=== PATIENT | female | born 1935 | race Caucasian/White ===

== ENCOUNTER 2018-09-18 12:52 | Emergency (ER) | payer MEDICARE, BC ==
[~2018-09-18] VITALS: Ht 157.5 cm; Wt 40.9 kg
[~2018-09-18 12:52] MED LIST: ATOR10TA87 PO; BIOT25008 PO; CA C1TAB69 PO; CALC-1197 PO; COU1T PO; ENOX100S3 SQ; FLUO40CA PO; FURO-150 PO; LEVO150T73 PO; METH-603 PO; MULT-1141 PO; OMEG1CAP46 PO; PANT40TA39 PO; POTA-82 PO; SUCR1TAB PO; UBID100C16 PO; VITA1CAP62 PO; VITC500T PO; oxygen
[2018-09-18 15:18] LABS: BASOPHILS % (AUTO) 0.1 % (0-1); EOSINOPHILS # (AUTO) 0.1 X10'3 (0-0.9); EOSINOPHILS % (AUTO) 1.2 % (0-6); HEMATOCRIT 38.8 % (35.0-45.0); HEMOGLOBIN 12.9 g/dl (12.0-16.0); LYMPHOCYTES # (AUTO) 1.2 X10'3 (1.1-4.8); LYMPHOCYTES % (AUTO) 11.4 % (21-51); MEAN CORPUSCULAR HEMOGLOBIN 32.1 PG (27.0-31.0); MEAN CORPUSCULAR HGB CONC 33.2 % (33.0-36.5); MEAN CORPUSCULAR VOLUME 96.5 FL (78-98); MEAN PLATELET VOLUME 6.5 FL (7.4-10.4); MONOCYTES # (AUTO) 0.4 X10'3 (0-0.9); MONOCYTES % (AUTO) 4.2 % (2-12); NEUTROPHILS # (AUTO) 8.6 X10'3 (1.8-7.7); NEUTROPHILS % (AUTO) 83.1 % (42-75); PLATELET COUNT 338 X10'3 (140-440); RED BLOOD COUNT 4.02 X10'6 (4.20-5.60); WHITE BLOOD COUNT 10.4 X10'3 (4.5-11.0)
[2018-09-18 15:35] LABS: ALANINE AMINOTRANSFERASE 24 U/L (12-78); ALBUMIN 3.7 G/DL (3.4-5.0); ALKALINE PHOSPHATASE 116 IU/L (46-116); ANION GAP 11 (8-16); ASPARTATE AMINO TRANSFERASE 20 U/L (10-37); BILIRUBIN,TOTAL 0.7 MG/DL (0.1-1.0); BLOOD UREA NITROGEN 18 MG/DL (7-18); BUN/CREATININE RATIO 15.7 (6.6-38.0); CALCIUM 8.8 MG/DL (8.5-10.1); CHLORIDE 100 MMOL/L (99-107); CREATININE 1.15 MG/DL (0.40-0.90); GLUCOSE 118 MG/DL (70-104); INR 2.2 INR; PARTIAL THROMBOPLASTIN TIME 41 SECONDS (22-32); PROTHROMBIN TIME 21.4 SECONDS (9.0-12.0); SODIUM 139 MMOL/L (135-145); TOTAL CARBON DIOXIDE 28.2 MMOL/L (24-32); TOTAL PROTEIN 7.5 G/DL (6.4-8.2); eGFR 45 ML/MIN
[2018-09-18 15:40] LABS: POTASSIUM 2.9 MMOL/L (3.5-5.1)
[2018-09-18] MEDS ORDERED: potassium Cl 20 mEq SR tablet PO ONE (16:05)
[2018-09-18] MEDS: potassium 10mEq/100ml NS w/LIDOcaine (10mg/bag) IV SCH ×2 (16:31→17:05)
[2018-09-18 16:38] LABS: CLARITY,URINE CLEAR (Clear); COLOR,URINE YELLOW (Yellow); GLUCOSE, URINE NEGATIVE (Neg); KETONES,URINE NEGATIVE (Neg); LEUKOCYTE ESTERASE ,URINE NEGATIVE (Neg); NITRITES, URINE NEGATIVE (Neg); OCCULT BLOOD,URINE NEGATIVE (Neg); PROTEIN,URINE TRACE mg/dl (Neg); UROBILINOGEN,URINE 0.2 E.U/dL (0.2-1.0)
[2018-09-18 16:40] LABS: UA COLLECTION TYPE STRAIGHT CATH
[2018-09-18] MEDS ORDERED: acetaminophen 325mg tablet PO ONE (16:40)
[2018-09-18 16:57] LABS: HYALINE CASTS 0-3 /LPF (NEGATIVE); MUCUS STRANDS FEW /LPF (Neg); SQUAMOUS EPITHELIAL CELL,UR NONE SEEN /LPF (FEW)
[2018-09-18 16:59] LABS: BACTERIA,URINE FEW /HPF (Neg); RBC,URINE 0-2 /HPF (0-2); WBC,URINE 0-4 /HPF (0-4)
[2018-09-18 19:57] VITALS: BP 134/89
[2018-09-21] MEDS ORDERED: CEPH-572 PO (16:38)
[2018-09-23] MEDS ORDERED: LISI10TA4 PO (10:52)
[2018-09-23] MEDS ORDERED: CEFD300C3 PO (10:57)
== END 2018-09-18 19:57 | disposition home or self-care (01) ==
LOC: ER 12:53
DX: S00.83XA Contusion of other part of head, initial encounter (principal); R10.9 Unspecified abdominal pain; I25.10 Atherosclerotic heart disease of native coronary artery without angina pectoris; I50.9 Heart failure, unspecified; I25.2 Old myocardial infarction; K21.9 Gastro-esophageal reflux disease without esophagitis; Z90.710 Acquired absence of both cervix and uterus; Z79.01 Long term (current) use of anticoagulants; Z79.899 Other long term (current) drug therapy; W18.39XA Other fall on same level, initial encounter; Y93.89 Activity, other specified; Y92.89 Other specified places as the place of occurrence of the external cause; Y99.8 Other external cause status
CPT/HCPCS: 36415; 70450; 70486; 71045; 74176; 80053; 81001; 82948; 85025; 85610; 85730; 93005; 99284; J3480

== ENCOUNTER 2018-09-21 13:11 | Inpatient (IN) | payer MEDICARE, BC | END 2018-09-28 16:15 | disposition home or self-care (01) | LOC: ER 13:11 → SUR 3N 09-22 02:15 → ED HOLD 19:59 | DX: A41.9 Sepsis, unspecified organism (principal); G93.41 Metabolic encephalopathy; J96.01 Acute respiratory failure with hypoxia; N39.0 Urinary tract infection, site not specified; E87.3 Alkalosis; N17.9 Acute kidney failure, unspecified; Z79.01 Long term (current) use of anticoagulants; I48.2 Chronic atrial fibrillation; J44.9 Chronic obstructive pulmonary disease, unspecified; J84.10 Pulmonary fibrosis, unspecified; E86.0 Dehydration; E87.6 Hypokalemia ==

== ENCOUNTER 2018-09-30 17:59 | Inpatient (IN) | payer MEDICARE, BC | END 2018-10-03 14:00 | LOC: ER 17:59 → ED HOLD 20:34 → ORTHO 4S 10-01 16:35 | DX: I13.0 Hypertensive heart and chronic kidney disease with heart failure and stage 1 through stage 4 chronic kidney disease, or unspecified chronic kidney disease (principal); J96.11 Chronic respiratory failure with hypoxia; I48.0 Paroxysmal atrial fibrillation ==

== ENCOUNTER 2018-11-04 11:08 | Inpatient (IN) | payer MEDICARE, BC | END 2018-11-12 19:17 | disposition E | LOC: ER 11:08 → PCU 3S 11-05 07:15 → ED HOLD 16:34 | DX: A41.9 Sepsis, unspecified organism (principal); J18.9 Pneumonia, unspecified organism; J96.01 Acute respiratory failure with hypoxia; I21.A1 Myocardial infarction type 2 ==